=== PATIENT | female | born 1980 | race Asian ===

== ENCOUNTER 2018-06-02 02:25 | Emergency (ER) | payer OTHER ==
[~2018-06-02] VITALS: Ht 149.9 cm; Wt 70.5 kg
[2018-06-02 02:51] LABS: APPEARANCE,URINE TURBID (CLEAR); GLUCOSE, URINE (UA) NEGATIVE (NEGATIVE); KETONES,URINE 15 mg/dL (NEGATIVE); LEUKOCYTE ESTERASE ,URINE LARGE (NEGATIVE); NITRATE,URINE POSITIVE (NEGATIVE); OCCULT BLOOD,URINE LARGE (NEGATIVE); PROTEIN,URINE SEE CONFIRM (NEGATIVE)
[2018-06-02 02:53] LABS: BILIRUBIN,URINE PRELIM. POSITIVE (NEGATIVE)
[2018-06-02 02:57] LABS: RBC,URINE Full Field /HPF (0-2)
[2018-06-02 03:08] LABS: BACTERIA,URINE Moderate /HPF (None Seen); SQUAMOUS EPITHELIAL CELL,UR Rare /LPF (None Seen); WBC,URINE >100 /HPF (0-5)
[2018-06-02 03:09] LABS: SULFOSALICYLIC ACID,URINE 3+ (Negative)
[2018-06-02] MEDS ORDERED: SULFAMETHOX/TRIMETH DS 800-160 MG/TABLET PO ONE (05:00)
[2018-06-02 05:02] VITALS: BP 138/80
== END 2018-06-02 05:04 | disposition home or self-care (01) ==
LOC: EMS 02:26
DX: N39.0 Urinary tract infection, site not specified (principal)
CPT/HCPCS: 87086